=== PATIENT | female | born 1950 | race Caucasian/White ===

== ENCOUNTER 2020-04-07 09:25 | Emergency (ER) | payer MEDICARE ==
[~2020-04-07] VITALS: Ht 165.1 cm; Wt 88.7 kg
[2020-04-07] MEDS ORDERED: DILTIAZEM HCL 5 MG/ML 5 ML VIAL IV STA (10:13)
[2020-04-07] MEDS ORDERED: ENOXAPARIN SODIUM INJ 100 MG/ML SYR SC STA (10:14)
[2020-04-07] MEDS ORDERED: ASPIRIN 325 MG TAB PO ONE (10:15)
[2020-04-07] MEDS ORDERED: ASPIRIN 325 MG TAB ONE (11:24)
[2020-04-07] MEDS ORDERED: ENOXAPARIN SODIUM INJ 100 MG/ML SYR SC ONE (11:24)
[2020-04-07] MEDS ORDERED: DILTIAZEM HCL VIAL 5 ML ONE (11:24)
[2020-04-07] MEDS ORDERED: POTASSIUM CHLORIDE 20 MEQ TAB CR PO STA ×2 (12:38→13:27)
[2020-04-07] MEDS ORDERED: ELIQUIS5 M1 PO (13:24)
[2020-04-07] MEDS ORDERED: POTASSIUM CHLORIDE 20 MEQ TAB CR PO ONE (13:25)
[2020-04-07 14:57] VITALS: BP 140/75
== END 2020-04-07 13:53 | disposition home or self-care (01) ==
LOC: FSED 09:58
DX: E87.6 Hypokalemia (principal); I48.91 Unspecified atrial fibrillation; I10 Essential (primary) hypertension; R94.31 Abnormal electrocardiogram [ECG] [EKG]
CPT/HCPCS: 71045; 80053; 81003; 82553; 84484; 85025; 85610; 93005; 96372; 99284; J1650

== ENCOUNTER 2020-04-14 06:46 | Observation (INO) | payer MEDICARE ==
[~2020-04-14] VITALS: Ht 165.1 cm; Wt 86.2 kg
[~2020-04-14 06:46] MED LIST: ELIQUIS5 M1 PO
[2020-04-14] MEDS ORDERED: ENOXAPARIN SODIUM INJ 100 MG/ML SYR SC STA (09:00)
[2020-04-14] MEDS ORDERED: POTASSIUM CHLORIDE 20 MEQ TAB CR PO STA (09:00)
[2020-04-14] MEDS ORDERED: ONDANSETRON HCL INJ 2MG/ML 2ML 2 MG/ML VIAL IV PRN (09:15)
[2020-04-14] MEDS ORDERED: POTASSIUM CHLORIDE 20 MEQ TAB CR PO ONE (09:29)
[2020-04-14] MEDS ORDERED: ENOXAPARIN SODIUM INJ 100 MG/ML SYR SC ONE (09:29)
[2020-04-14] MEDS ORDERED: FAMOTIDINE 20 MG/2 ML VIAL IV SCH (10:00)
[2020-04-14 14:09] VITALS: BP 149/82
[2020-04-14] MEDS: METOPROLOL SUCCINATE 50 MG TAB XL PO SCH ×2 (15:07→22:00)
[2020-04-14 15:38] VITALS: BP 141/73
[2020-04-14] MEDS ORDERED: POLYETHYLENE GLYCOL 3350 17 GM PACK PO PRN (16:30)
[2020-04-14] MEDS ORDERED: METOPROLOL TARTRATE INJ 1 MG/ML VIAL IV PRN (16:30)
[2020-04-14] MEDS ORDERED: ACETAMINOPHEN 325 MG TAB PO PRN (16:30)
[2020-04-14] MEDS ORDERED: TEMAZEPAM 7.5 MG CAP PO PRN (16:30)
[2020-04-14] MEDS: DOCUSATE SODIUM 100 MG CAP PO SCH (17:00)
[2020-04-14] MEDS: FAMOTIDINE 20 MG/2 ML VIAL IV SCH (18:12)
[2020-04-14] MEDS: APIXABAN 5 MG TABLET PO SCH (18:12)
[2020-04-14 18:15] LABS: CREATINE KINASE 81 IU/L (29-168)
[2020-04-14 18:40] LABS: THYROID STIMULATING HORMONE 0.999 uIU/mL (0.350-4.940)
[2020-04-14 20:00] VITALS: BP 131/70
[2020-04-14] MEDS ORDERED: ENOXAPARIN SODIUM INJ 100 MG/ML SYR SC SCH (21:00)
[2020-04-14] MEDS ORDERED: TEMAZEPAM 15 MG CAP PO PRN (21:00)
[2020-04-15] VITALS (7 sets, daily range): BP systolic 122–150; BP diastolic 55–80
[2020-04-15 07:06] LABS: BASOPHILS % 0.2 % (0.0-1.0); EOSINOPHILS # (AUTO) 0.1 (0.0-0.4); EOSINOPHILS % 1.9 % (0.0-6.0); HEMATOCRIT 40.8 % (34.2-44.1); HEMOGLOBIN 13.3 g/dL (12.0-16.0); LYMPHOCYTES # (AUTO) 1.6 (1.0-3.2); LYMPHOCYTES % 33.2 % (18.0-39.1); MEAN CORPUSCULAR HEMOGLOBIN 30.4 pg (28-32); MEAN CORPUSCULAR HGB CONC 32.6 g/dL (31-35); MEAN CORPUSCULAR VOLUME 93.2 fL (81-99); MONOCYTES # (AUTO) 0.6 (0.2-0.8); NEUTROPHILS # (AUTO) 2.5 (2.1-6.9); NEUTROPHILS % 52.5 % (38.7-80.0); PLATELET COUNT 236 x10e3/uL (140-360); RED BLOOD COUNT 4.38 x10e6/uL (3.6-5.1); RED CELL DISTRIBUTION WIDTH 12.7 % (11.7-14.4)
[2020-04-15 07:26] LABS: ANION GAP 15.7 mmol/L (8-16); BLOOD UREA NITROGEN 10 mg/dL (7-26); BUN/CREATININE RATIO 13 (6-25); CALCIUM 8.7 mg/dL (8.4-10.2); CARBON DIOXIDE 21 mmol/L (22-29); CHLORIDE 110 mmol/L (98-107); CHOL/HDL RATIO 2.8 (3.0-3.6); CHOLESTEROL 139 MD/DL (0-199); CREATINE KINASE 83 IU/L (29-168); CREATININE, SERUM 0.79 mg/dL (0.57-1.11); EST GLOMERULAR FILTRATION RATE > 60 ML/MIN (60-); GLUCOSE 90 mg/dL (74-118); HDL CHOLESTEROL 49 MG/DL (40-60); LDL CHOLESTEROL 78 MG/DL (60-130); PHOSPHORUS 2.9 MG/DL (2.3-4.7); POTASSIUM 3.7 mmol/L (3.5-5.1); SODIUM 143 mmol/L (136-145); TRIGLYCERIDES 62 MG/DL (0-149)
[2020-04-15 07:46] LABS: THYROID STIMULATING HORMONE 1.804 uIU/mL (0.350-4.940)
[2020-04-15] MEDS: FAMOTIDINE 20 MG/2 ML VIAL IV SCH (09:00)
[2020-04-15] MEDS: DOCUSATE SODIUM 100 MG CAP PO SCH (09:00)
[2020-04-15] MEDS: METOPROLOL SUCCINATE 50 MG TAB XL PO SCH (09:00)
[2020-04-15] MEDS ORDERED: ASPIRIN 325 MG TAB EC PO SCH (09:00)
[2020-04-15] MEDS ORDERED: TOPROL XL50 MG PO (09:03)
[2020-04-15] MEDS ORDERED: LORAZEPAM PO (09:03)
[2020-04-15] MEDS: APIXABAN 5 MG TABLET PO SCH (09:19)
== END 2020-04-15 13:45 | disposition home or self-care (01) ==
LOC: FSED 07:15 → ERHOLD 09:23 → MED/SURG 13:51
PROVIDERS: ADMIT Internal Medicine; ATTEND Internal Medicine
DX: I48.0 Paroxysmal atrial fibrillation (principal); E87.6 Hypokalemia; N39.0 Urinary tract infection, site not specified; I10 Essential (primary) hypertension; F41.9 Anxiety disorder, unspecified; Z82.49 Family history of ischemic heart disease and other diseases of the circulatory system; Z80.9 Family history of malignant neoplasm, unspecified; Z83.3 Family history of diabetes mellitus; Z20.828 Contact with and (suspected) exposure to other viral communicable diseases; E66.9 Obesity, unspecified; Z68.31 Body mass index [BMI] 31.0-31.9, adult; Z88.3 Allergy status to other anti-infective agents; Z88.0 Allergy status to penicillin; Z88.2 Allergy status to sulfonamides; Z88.8 Allergy status to other drugs, medicaments and biological substances
CPT/HCPCS: 36415 ×2; 71045; 80048; 80053; 80061; 81003; 82550 ×2; 82553 ×2; 83036; 83735; 84100; 84436; 84443 ×2; 84484 ×2; 85025 ×2; 93005; 93306; 93880; 99284; G0378 ×2; J1650; U0002

== ENCOUNTER 2020-09-16 05:31 | Emergency (ER) | payer MEDICARE ==
[~2020-09-16] VITALS: Ht 165.1 cm; Wt 86.2 kg
[~2020-09-16 05:31] MED LIST changes: +LORAZEPAM PO; +TOPROL XL50 MG PO
[2020-09-16 06:49] LABS: BASOPHILS % 0.4 % (0.0-1.0); EOSINOPHILS # (AUTO) 0.1 (0.0-0.4); EOSINOPHILS % 1.4 % (0.0-6.0); HEMOGLOBIN 13.1 g/dL (12.0-16.0); LYMPHOCYTES # (AUTO) 2.1 (1.0-3.2); LYMPHOCYTES % 40.7 % (18.0-39.1); MEAN CORPUSCULAR HEMOGLOBIN 30.9 pg (28-32); MEAN CORPUSCULAR HGB CONC 32.8 g/dL (31-35); MEAN CORPUSCULAR VOLUME 94.3 fL (81-99); MONOCYTES # (AUTO) 0.6 (0.2-0.8); MONOCYTES % 12.5 % (4.4-11.3); NEUTROPHILS # (AUTO) 2.3 (2.1-6.9); PLATELET COUNT 237 x10e3/uL (140-360); RED BLOOD COUNT 4.24 x10e6/uL (3.6-5.1); RED CELL DISTRIBUTION WIDTH 12.6 % (11.7-14.4)
[2020-09-16 06:58] LABS: INR 0.85; PROTHROMBIN TIME 12.2 seconds (11.9-14.5)
[2020-09-16 06:59] LABS: PARTIAL THROMBOPLASTIN TIME 31.9 seconds (23.8-35.5)
[2020-09-16 07:09] LABS: ALANINE AMINOTRANSFERASE 11 IU/L (0-55); ALBUMIN 3.8 g/dL (3.5-5.0); ALBUMIN/GLOBULIN RATIO 1.1 (0.8-2.0); ALKALINE PHOSPHATASE 73 IU/L (40-150); ANION GAP 14.6 mmol/L (8-16); BLOOD UREA NITROGEN 13 mg/dL (7-26); BUN/CREATININE RATIO 16 (6-25); CARBON DIOXIDE 21 mmol/L (22-29); CHLORIDE 106 mmol/L (98-107); CREATINE KINASE 87 IU/L (29-168); EST GLOMERULAR FILTRATION RATE > 60 ML/MIN (60-); GLUCOSE 106 mg/dL (74-118); MAGNESIUM 1.9 MG/DL (1.3-2.1); POTASSIUM 3.6 mmol/L (3.5-5.1); SODIUM 138 mmol/L (136-145)
[2020-09-16 08:03] LABS: CLARITY,URINE CLEAR (CLEAR); COLOR,URINE YELLOW (YELLOW); LEUKOCYTE ESTERASE ,URINE SMALL (NEGATIVE); NITRITE,URINE NEGATIVE (NEGATIVE); PROTEIN,URINE DIPSTICK NEGATIVE (NEGATIVE)
[2020-09-16 08:04] LABS: KETONES,URINE TRACE (NEGATIVE); URINE UROBILINOGEN 0.2 mg/dL (0.2 - 1)
[2020-09-16 08:21] LABS: BACTERIA,URINE RARE /HPF; EPITHELIAL CELLS,URINE FEW /LPF; RBC,URINE 0-5 /HPF (0-5); WBC,URINE (MAN) 0-5 /HPF (0-5)
[2020-09-16 08:27] LABS: OTHER CRYSTALS,URINE PRESENT
== END 2020-09-16 09:28 | disposition home or self-care (01) ==
LOC: ER 07:40
DX: I48.91 Unspecified atrial fibrillation (principal); R94.31 Abnormal electrocardiogram [ECG] [EKG]
CPT/HCPCS: 36415; 71045; 80053; 81001; 82550; 82553; 83735; 83880; 84484; 85025; 85610; 85730; 93005; 99284

== ENCOUNTER 2021-11-24 14:05 | Emergency (ER) | payer MEDICARE, OTHER ==
[~2021-11-24] VITALS: Ht 165.1 cm; Wt 83.9 kg
== END 2021-11-24 15:26 | disposition home or self-care (01) ==
LOC: FSED 14:07
DX: S00.83XA Contusion of other part of head, initial encounter (principal); W01.0XXA Fall on same level from slipping, tripping and stumbling without subsequent striking against object, initial encounter; Y93.K1 Activity, walking an animal; Y92.89 Other specified places as the place of occurrence of the external cause; E03.9 Hypothyroidism, unspecified
CPT/HCPCS: 70450; 99283

== ENCOUNTER 2025-01-20 07:14 | Emergency (ER) | payer MEDICARE ==
[~2025-01-20] VITALS: Ht 165.1 cm; Wt 88.9 kg
[2025-01-20 07:28] VITALS: TEMP 98.4
[2025-01-20 08:08] LABS: LEUKOCYTE ESTERASE ,URINE NEGATIVE (NEGATIVE); PROTEIN,URINE DIPSTICK NEGATIVE (NEGATIVE); URINE UROBILINOGEN 0.2 mg/dL (0.2 - 1)
[2025-01-20] MEDS: LIDOCAINE 4% PATCH TP ONE (08:31)
[2025-01-20 08:40] LABS: EPITHELIAL CELLS,URINE FEW /LPF; WBC,URINE (MAN) 0-5 /HPF (0-5)
[2025-01-20 08:41] VITALS: PULSE 88; RESP 18
[2025-01-20 09:35] VITALS: BP 166/70; PULSE 90; RESP 18; TEMP 98.3; O2SAT 100
== END 2025-01-20 09:30 | disposition home or self-care (01) ==
LOC: ER 07:19
DX: B02.29 Other postherpetic nervous system involvement (principal); N39.0 Urinary tract infection, site not specified; K59.00 Constipation, unspecified; I10 Essential (primary) hypertension; I48.91 Unspecified atrial fibrillation; E03.9 Hypothyroidism, unspecified
CPT/HCPCS: 81001; 87086; 99282